=== PATIENT | female | born 1965 | race Caucasian/White ===

== ENCOUNTER → 2019-07-04 08:00 | Day surgery (SDC) | payer BC ==
[~2019-07-04 08:00] MED LIST: Buffered Lidocaine 1% SYRIN* 1 ML/SYRINGE INTRADERM ONE; Bupivacaine 0.25% SDV* 30 ML ONE; Bupivacaine 0.5% SDV PF* 30ML VIAL ONE; Famotidine IV* 10 MG/ML 2 ML (20 mg) IV ONE; Famotidine IV* 10 MG/ML 2 ML (20 mg) ONE; Ketorolac INJ* 30 MG/ML 1 ML VIAL ONE; Lactated Ringers 1000 ML Bag* 1,000 ML IV SCH; Lidocaine 1% INJ* 10 MG/ML 30 ML SDV ONE; Midazolam* 1 MG/ML 5 ML VIAL (5 MG) ONE; Ondansetron INJ* 2 MG/ML VIAL ONE; Propofol* 10 MG/ML 20 ML BTL ONE; ceFAZolin 2 GM in NS PREMIX(*) 2 GM/100 ML BAG IVPB ONE
[2019-07-04 11:20] VITALS: BP 118/61
--- NOTE | 2019-07-05 03:36 | OP ---
DATE OF OPERATION: 07/04/19 [facility] DATE OF : 61 SURGEON: Jourdan Conklin MD. TACK CUTTER: None. ANESTHESIOLOGIST: Dr. Olguin. ANESTHESIA: Local MAC. PRE-OP DIAGNOSIS: Left dorsal wrist ganglion. POST-OP DIAGNOSIS: Left dorsal wrist ganglion. OPERATIVE PROCEDURE: Excision left dorsal wrist ganglion. INDICATIONS: Ms. Callejas has a very large mass over the dorsum of the wrist. We talked about risks and benefits including the risk of cyst recurrence. She wants to proceed. ESTIMATED BLOOD LOSS: 2 mL. COMPLICATIONS: None. FINDINGS: See above and below. DESCRIPTION OF PROCEDURE: Ms. Callejas was seen in the preoperative holding area. The correct side, site, and procedure were identified. We came back to the operating room. The arm was prepped and draped in the usual fashion. A time-out was performed. I injected to the operative area with 0.25% plain Marcaine. The arm was exsanguinated with the Esmarch and the tourniquet was inflated to 225 mmHg. I made a transverse incision over the cyst. Dissection was carried down and a marginal excision was performed with the tenotomy scissors. The cyst was coming right off the dorsal scapholunate ligament. Once I had amputated off the cyst and handed off as specimen, I cauterized the area with the Bovie. The wound was then irrigated out. Skin was closed with 4-0 Monocryl and Steri-Strips. She was placed in a short-arm cock-up plaster wrist splint and taken to the recovery room in stable condition. [id number]/[facility] #: [id number] [facility]
== END | disposition home or self-care (01) ==
LOC: OREAST 08:00
PROVIDERS: ATTEND Orthopaedic Surgery Hand Surgery
DX: M67.432 Ganglion, left wrist (principal); Z87.891 Personal history of nicotine dependence
CPT/HCPCS: 88304; J0690; J1885; J2250; J2405; J2704; J3490

== ENCOUNTER 2024-07-19 09:34 | Observation (INO) ==
[2024-07-19] MEDS: Lactated Ringers 1000 ml BAG IV.FLUID IV ONE ×2 (10:56→14:37)
[2024-07-19] MEDS: Ondansetron 4 mg VIAL 2 MG/ML 2 ml VIAL IV ONE (10:56)
[2024-07-19 11:11] LABS: ABS Lymphocytes 0.7 10^3/uL (1.0-4.8); ABS Monocytes 0.8 10^3/uL (0.0-0.9); ABS Neutrophils 10.7 10^3/uL (1.5-7.6); Hematocrit 41.6 % (35-45); Hemoglobin 14.1 g/dL (11.5-14.3); Lymphocyte % 5.6 %; Mean Corpuscular Hemoglobin 31.3 pg (27-33); Mean Corpuscular Volume 92.1 fL (80-97); Mean Platelet Volume 9.5 fL (7.5-11.2); Platelet Count 171 10^3/uL (150-450); Red Blood Count 4.52 10^6/uL (3.63-4.92); Red Cell Distribution Width 12.3 % (12-17); White Blood Count 12.2 10^3/uL (3.8-11.8)
[2024-07-19 11:39] LABS: ALT 23 U/L (7-52); AST 26 U/L (13-39); Albumin 4.3 g/dL (3.5-5.7); Albumin/Globulin Ratio 1.7 (1-3); Alkaline Phosphatase 57 U/L (35-149); Anion Gap 8 mmol/L (2-16); Blood Urea Nitrogen 14 mg/dL (6-24); CO2 Carbon Dioxide 29 mmol/L (22-32); Calcium 9.3 mg/dL (8.6-10.3); Chloride 97 mmol/L (101-111); Creatinine, Serum 0.85 mg/dL (0.51-0.95); Globulin 2.5 g/dL (2-4); Glucose 112 mg/dL (70-100); Lipase < 10 U/L (11.0-82.0); Sodium 134 mmol/L (135-145); Total Bilirubin 1.5 mg/dL (0.2-1.0); Total Protein 6.8 g/dL (6.4-8.9); eGFR CKD-EPI 78.4 (>60)
[2024-07-19 12:36] LABS: High Sensitivity Troponin 1 Hr 7 pg/mL (<15)
[2024-07-19 12:54] LABS: High Sens Troponin Baseline 7 pg/mL (<15)
[2024-07-19 12:58] LABS: Urine Appearance Clear; Urine Bilirubin Negative (Negative); Urine Blood Trace (Negative); Urine Color Light-Yellow; Urine Glucose Negative (Negative); Urine Ketones 1+ (Negative); Urine Nitrite Negative (Negative); Urine Protein Negative (Negative); Urine Urobilinogen Negative (Negative)
[2024-07-19 13:00] LABS: Urine Bacteria Absent /HPF (Absent); Urine Red Blood Cell Trace(0-2/hpf) /HPF (0-Trace); Urine Squamous Epithelial Cell Present /HPF (Absent); Urine White Blood Cell Trace(0-5/hpf) /HPF (0-Trace)
[2024-07-19] MEDS: Iohexol 350 (CONTRAST) 500 ML MDV IV ONE (13:13)
[2024-07-19] MEDS: ceFOXitin 1 GM in NS 0.9% 50 ML 50 ML IVPB ONE (14:34)
[2024-07-19] MEDS: Piperacillin/Tazobac 3.375 BAG 3.375 GM/100 ML BAG IV ONE (14:37)
[2024-07-19] MEDS ORDERED: Rocuronium 50 mg VIAL 10 mg/ml 5 ml VIAL (50 mg) ONE (14:49)
[2024-07-19] MEDS ORDERED: Bupivacaine 0.25% SDV 30 ML ONE (14:49)
[2024-07-19] MEDS ORDERED: Propofol 10 MG/ML 20 ML BTL ONE (14:49)
[2024-07-19] MEDS ORDERED: fentaNYL 100 mcg/2 ml 50 MCG/ML VIAL ONE (14:49)
[2024-07-19] MEDS ORDERED: Midazolam 2 mg/2 ml VIAL 1 mg/ml 2 ml VIAL (2 mg) ONE (14:49)
[2024-07-19] MEDS ORDERED: Ondansetron 4 mg VIAL 2 MG/ML 2 ml VIAL ONE (15:54)
[2024-07-19] MEDS ORDERED: Dexamethasone IV 4 MG/ML VIAL 1 ml VIAL ONE ×2 (15:54→15:55)
[2024-07-19] MEDS ORDERED: Ondansetron 4 mg VIAL 2 MG/ML 2 ml VIAL IV PRN (16:58)
[2024-07-19] MEDS ORDERED: Zosyn per Pharmacy NOTE FOLLOW UP SCH (17:00)
[2024-07-19] MEDS: Lactated Ringers 1000 ml BAG 1,000 ML IV SCH (18:30)
[2024-07-19] MEDS: ZOSYN 3.375 GM Q8H per EXTENDED INFUSION IV SCH (21:34)
[2024-07-19] MEDS: NS 0.9% 1,000 ML IV SCH (21:35)
[2024-07-21 10:17] VITALS: BP 112/55
== END 2024-07-21 12:56 | disposition home or self-care (01) ==
LOC: ED 09:34 → SSU 14:44 → OR 14:45 → ED 14:50
PROVIDERS: ADMIT Surgery; ATTEND Surgery